=== PATIENT | male | born 1945 | race Caucasian/White ===

== ENCOUNTER 2017-11-30 10:25 | Emergency (ER) | payer OTHER ==
[~2017-11-30] VITALS: Ht 188 cm; Wt 124.7 kg
[~2017-11-30 10:25] MED LIST: ACYC400 PO; ALBU90OI INH; AMLO5 PO; ATEN50 PO; ATOR80 PO; BENZ100A PO; Cipro500 MG PO; GUAI600ER; HYDACE5; HYDACE5 PO; Isosorbide Mono60 MG PO; LEVSOD112; LEVSOD137 PO; LEVSOD25 PO; MAGCIT300 PO; MELO7.5 PO; METO25ER; METO50 PO; METO50ER; NAPR500 PO; Naprosyn500 MG PO; Prednisone20 MG PO; TIMO.5OPSO BOTHEYES; TRAZ100; TRAZ50 PO; Ultram50 MG PO; WARF5; WARF6; WARF7.5 PO; XARELTO20 MG PO
[2017-11-30] MEDS ORDERED: GLIM2 (10:47)
[2017-11-30] MEDS ORDERED: MULTIPLE SUPPLEMENTS (10:47)
[2017-11-30] MEDS ORDERED: UBID10 (10:47)
== END 2017-11-30 11:08 | disposition home or self-care (01) ==
LOC: ER 10:25
DX: M53.3 Sacrococcygeal disorders, not elsewhere classified (principal); G89.29 Other chronic pain; Z79.899 Other long term (current) drug therapy; E03.9 Hypothyroidism, unspecified; I48.91 Unspecified atrial fibrillation; I10 Essential (primary) hypertension; Z87.891 Personal history of nicotine dependence
CPT/HCPCS: 99281

== ENCOUNTER 2017-12-05 05:58 | Emergency (ER) | payer OTHER ==
[~2017-12-05] VITALS: Ht 188 cm; Wt 122.5 kg
[~2017-12-05 05:58] MED LIST changes: +GLIM2; +MULTIPLE SUPPLEMENTS; +UBID10
== END 2017-12-05 10:47 | disposition home or self-care (01) ==
LOC: ER 05:58
DX: M25.551 Pain in right hip (principal); G89.29 Other chronic pain; I10 Essential (primary) hypertension; I48.91 Unspecified atrial fibrillation; E03.9 Hypothyroidism, unspecified; Z87.891 Personal history of nicotine dependence; Z79.899 Other long term (current) drug therapy
CPT/HCPCS: 73502; 99283

== ENCOUNTER 2018-09-12 13:26 | Emergency (ER) | payer OTHER ==
[~2018-09-12] VITALS: Ht 188 cm; Wt 122.5 kg
[2018-09-12] MEDS ORDERED: Cipro500 MG PO (14:36)
== END 2018-09-12 14:39 | disposition home or self-care (01) ==
LOC: ER 13:26
DX: J06.9 Acute upper respiratory infection, unspecified (principal); Z79.899 Other long term (current) drug therapy; E03.9 Hypothyroidism, unspecified; I48.91 Unspecified atrial fibrillation; I10 Essential (primary) hypertension; Z87.891 Personal history of nicotine dependence
CPT/HCPCS: 99282

== ENCOUNTER 2019-05-04 09:04 | Day surgery (SDC) | payer OTHER ==
[~2019-05-04] VITALS: Ht 188 cm; Wt 120.0 kg
[~2019-05-04 09:04] MED LIST changes: +TIMO.25OPS; -TIMO.5OPSO BOTHEYES; -UBID10; +UBID10 PO
[2019-05-04] MEDS ORDERED: Refresh Eye Dr1 EACH BOTHEYES (09:58)
[2019-05-04] MEDS ORDERED: Aspir 8181 MG PO (10:00)
[2019-05-04] MEDS ORDERED: OMEP20ER PO (10:01)
--- NOTE | 2019-05-04 12:40 | NUR ---
PT TO RECOVERY ROOM POST PROCEDURE. PT IS DROWSY, BUT ANSWERS QUESTIONS APPROPRIATELY. PT DENIES PAIN, SOB OR NAUSEA POST PROCEDURE. MONITOR AFIB 50'S, B/P 198/74, AFEBRILE, SPO2 93-95% 2L NC. R GROIN SITE NO SWELLING/HEMATOMA, OLD DRAINAGE TO JYOTI INTACT; 2+ PULSES BLE. L RADIAL ATTEMPT, NO SWELLING/HEMATOMA, TR BAND IN PLACE. DR GAN NOTIFIED OF PT'S ELEVATED B/P, ORDERS RECEIVED.
--- NOTE | 2019-05-04 13:20 | NUR ---
PT'S HR DECREASING TO 30, REMAINS IN AFIB; PT ASYMPTOMATIC. DR GAN NOTIFIED, NO ORDERS RECIEVED, OK TO GIVE NORVASC.
--- NOTE | 2019-05-04 15:48 | NUR ---
PT AMB TO BATHROOM, TOLERATED ACTIVITY WELL, R GROIN AND L RADIAL SITE UNCHANGED WITH ACTIVITY.
--- NOTE | 2019-05-04 16:08 | NUR ---
L RADIAL SITE NO SWELLING/HEMATOMA, TR BAND REMOVED, CLOTH DOT PLACED WITH WRIST IMMOBILIZER. PT INSTRUCTED ON CARE OF SITE AND S/S OF INFECTION/BLEEDING TO LOOK FOR; VERBALIZED GOOD UNDERSTANDING.
--- NOTE | 2019-05-04 16:25 | NUR ---
PT DRESSED SELF WITHOUT ASSISTANCE, R GROIN AND L WRIST SITE REMAIN UNCHANGED; IV REMOVED-CANNULA INTACT.
--- NOTE | 2019-05-04 16:35 | NUR ---
PT RECEIVED DISCHARGE INSTRUCTIONS, MED LIST AND AFTER CARE INSTRUCTIONS; VERBALIZED GOOD UNDERSTANDING. PT TO ENTRANCE VIA W/C, GOING HOME VIA TAXI, CONDTION STABLE.
== END 2019-05-04 16:42 | disposition home or self-care (01) ==
LOC: MHTC 09:04
PROC: B203YZZ Plain Radiography of Multiple Coronary Artery Bypass Grafts using Other Contrast (ICD-10-PCS; principal; 2019-05-04)
PROC: 4A023N7 Measurement of Cardiac Sampling and Pressure, Left Heart, Percutaneous Approach (ICD-10-PCS; principal; 2019-05-04)
PROC: B201YZZ Plain Radiography of Multiple Coronary Arteries using Other Contrast (ICD-10-PCS; principal; 2019-05-04)
DX: I25.118 Atherosclerotic heart disease of native coronary artery with other forms of angina pectoris (principal); I25.718 Atherosclerosis of autologous vein coronary artery bypass graft(s) with other forms of angina pectoris; I25.82 Chronic total occlusion of coronary artery; I48.21 Permanent atrial fibrillation; E78.5 Hyperlipidemia, unspecified; I35.0 Nonrheumatic aortic (valve) stenosis; E66.9 Obesity, unspecified; F32.9 Major depressive disorder, single episode, unspecified; Z79.899 Other long term (current) drug therapy; Z79.01 Long term (current) use of anticoagulants; Z79.82 Long term (current) use of aspirin; Z87.891 Personal history of nicotine dependence; Z68.35 Body mass index [BMI] 35.0-35.9, adult
CPT/HCPCS: 76937; 85347; 93455; 99152; 99153; C1769; C1894; J0360; J0461; J1644; J2250; J3010; J7030; Q9967

== ENCOUNTER 2021-01-25 12:19 | Emergency (ER) | payer OTHER ==
[~2021-01-25] VITALS: Ht 188 cm; Wt 105.0 kg
[~2021-01-25 12:19] MED LIST changes: +Aspir 8181 MG PO; +OMEP20ER PO; +Refresh Eye Dr1 EACH BOTHEYES
[2021-01-25 13:13] LABS: BASOPHILS ABSOLUTE AUTO 0.05 K/mm3 (0.00-0.23); BASOPHILS PERCENT AUTO 1 % (0-2); EOSINOPHILS ABSOLUTE AUTO 0.12 K/mm3 (0.00-0.68); EOSINOPHILS PERCENT AUTO 1 % (0-6); Hematocrit 37.3 % (37.0-53.0); Hemoglobin 12.5 g/dL (13.5-17.5); IMMATURE GRAN ABSOLUTE AUTO 0.03 K/mm3 (0.00-0.10); IMMATURE GRAN PERCENT AUTO 0 % (0-1); LYMPHOCYTES ABSOLUTE AUTO 0.89 K/mm3 (0.84-5.20); LYMPHOCYTES PERCENT AUTO 9 % (21-46); MONOCYTES ABSOLUTE AUTO 0.86 K/mm3 (0.16-1.47); MONOCYTES PERCENT AUTO 9 % (4-13); Mean Corpuscular HGB 34.5 pg (26.0-34.0); Mean Corpuscular HGB Conc 33.5 g/dL (31.5-36.5); Mean Corpuscular Volume 103 fL (80-100); Mean Platelet Volume 11.5 fL (9.1-12.4); NEUTROPHILS ABSOLUTE AUTO 7.74 K/mm3 (1.96-9.15); NEUTROPHILS PERCENT AUTO 80 % (41-73); Platelet Count 129 K/mm3 (150-400); RDW Coefficient Variation 14.3 % (11.7-14.2); Red Blood Cell Count 3.62 M/mm3 (4.30-5.90); White Blood Cell Count 9.69 K/mm3 (4.00-11.30)
[2021-01-25 13:23] LABS: Albumin, Blood 4.4 g/dL (3.4-5.0); Bilirubin, Total 2.7 mg/dL (0.1-1.0); Creatinine, Blood 1.23 mg/dL (0.60-1.20); Globulin, Blood 4.3 g/dL (2.2-4.0); Magnesium, Blood 2.3 mg/dL (1.6-2.4); Phosphorus, Blood 2.8 mg/dL (2.5-4.9); Total Protein, Blood 8.7 g/dL (6.4-8.2)
[2021-01-25] MEDS ORDERED: GLIMEPIRIDE4 MG PO (13:47)
[2021-01-25] MEDS ORDERED: MONT4 PO (13:48)
[2021-01-25] MEDS ORDERED: LOSA25 PO (13:48)
[2021-01-25] MEDS ORDERED: Metformin HCl750 MG PO (13:48)
[2021-01-25 14:05] LABS: SARS-Cov-2 (COVID-19) PCR, MMC NEGATIVE (NEGATIVE)
[2021-01-25 15:27] LABS: International Normalized Ratio 1.42
== END 2021-01-25 19:40 | disposition short-term general hospital (02) ==
LOC: ER 12:19
PROVIDERS: Physician Assistant
DX: I21.4 Non-ST elevation (NSTEMI) myocardial infarction (principal); I11.0 Hypertensive heart disease with heart failure; I50.9 Heart failure, unspecified; I48.91 Unspecified atrial fibrillation; G47.00 Insomnia, unspecified; E03.9 Hypothyroidism, unspecified; Z79.01 Long term (current) use of anticoagulants; Z98.61 Coronary angioplasty status; Z87.891 Personal history of nicotine dependence; Z20.822 Contact with and (suspected) exposure to COVID-19
CPT/HCPCS: 36415; 80053; 83735; 83880; 84100; 84439; 84443; 84484; 85025; 85610; 85730; 93005; 93010; 96374; 99285-25; A9270; J1940; U0004

== ENCOUNTER 2022-02-04 10:45 | Emergency (ER) | payer OTHER ==
[~2022-02-04] VITALS: Ht 188 cm; Wt 99.8 kg
[~2022-02-04 10:45] MED LIST changes: +GLIMEPIRIDE4 MG PO; +LOSA25 PO; +MONT4 PO; +Metformin HCl750 MG PO
[2022-02-04 11:17] LABS: BASOPHILS ABSOLUTE AUTO 0.04 K/mm3 (0.00-0.23); BASOPHILS PERCENT AUTO 1 % (0-2); EOSINOPHILS ABSOLUTE AUTO 1.26 K/mm3 (0.00-0.68); EOSINOPHILS PERCENT AUTO 16 % (0-6); Hematocrit 34.1 % (37.0-53.0); Hemoglobin 11.3 g/dL (13.5-17.5); IMMATURE GRAN ABSOLUTE AUTO 0.02 K/mm3 (0.00-0.10); IMMATURE GRAN PERCENT AUTO 0 % (0-1); LYMPHOCYTES ABSOLUTE AUTO 0.61 K/mm3 (0.84-5.20); LYMPHOCYTES PERCENT AUTO 8 % (21-46); MONOCYTES ABSOLUTE AUTO 0.96 K/mm3 (0.16-1.47); MONOCYTES PERCENT AUTO 12 % (4-13); Mean Corpuscular HGB 32.9 pg (26.0-34.0); Mean Corpuscular HGB Conc 33.1 g/dL (31.5-36.5); Mean Corpuscular Volume 99 fL (80-100); Mean Platelet Volume 10.5 fL (9.1-12.4); NEUTROPHILS ABSOLUTE AUTO 5.05 K/mm3 (1.96-9.15); NEUTROPHILS PERCENT AUTO 64 % (41-73); Platelet Count 150 K/mm3 (150-400); RDW Coefficient Variation 14.7 % (11.7-14.2); RDW Standard Deviation 54.4 fL (35.1-46.3); Red Blood Cell Count 3.43 M/mm3 (4.30-5.90); White Blood Cell Count 7.94 K/mm3 (4.00-11.30)
[2022-02-04 11:27] LABS: Albumin, Blood 3.6 g/dL (3.4-5.0); Albumin/Globulin Ratio 0.9 (0.8-1.8); Bilirubin, Total 1.4 mg/dL (0.1-1.0); Bun/Creatinine Ratio 34.8 (12.0-20.0); Calcium, Blood 9.8 mg/dL (8.5-10.1); Creatinine, Blood 1.61 mg/dL (0.60-1.20); Globulin, Blood 4.1 g/dL (2.2-4.0); Potassium, Blood 4.2 mmol/L (3.5-5.5); Total Protein, Blood 7.7 g/dL (6.4-8.2)
[2022-02-04] MEDS ORDERED: MECL25 PO (13:29)
[2022-02-04] MEDS ORDERED: Hydrocortiso453.6 G3 TOP (13:40)
== END 2022-02-04 13:57 | disposition home or self-care (01) ==
LOC: ER 10:45
PROVIDERS: Student in an Organized Health Care Education/Training Program
DX: R42 Dizziness and giddiness (principal); I48.20 Chronic atrial fibrillation, unspecified; I12.9 Hypertensive chronic kidney disease with stage 1 through stage 4 chronic kidney disease, or unspecified chronic kidney disease; N18.9 Chronic kidney disease, unspecified; R21 Rash and other nonspecific skin eruption; M54.2 Cervicalgia; G89.29 Other chronic pain; L20.9 Atopic dermatitis, unspecified; E03.9 Hypothyroidism, unspecified; Z95.1 Presence of aortocoronary bypass graft; Z87.891 Personal history of nicotine dependence; Z79.899 Other long term (current) drug therapy; Z79.82 Long term (current) use of aspirin; Z79.84 Long term (current) use of oral hypoglycemic drugs
CPT/HCPCS: 36415; 80053; 85025; 93005; 93010; 99284-25; A9270

== ENCOUNTER 2022-04-06 08:52 | Day surgery (SDC) | payer OTHER ==
[~2022-04-06] VITALS: Ht 188 cm; Wt 101.0 kg
[~2022-04-06 08:52] MED LIST changes: +Hydrocortiso453.6 G3 TOP; +Isosorbide Mono30 MG PO; +LATA.005SO; +LOSA50 PO; +MECL25 PO
[2022-04-06] MEDS ORDERED: FURO40 PO (09:12)
[2022-04-06] MEDS ORDERED: CLOP75 PO (09:12)
--- NOTE | 2022-04-06 13:35 | NUR ---
PT HAS REFUSED OFFERED RIDES HOME. STATES HE IS WANTING TO BE ABLE TO DRIVE HOME TONIGHT HIS CAR IS "HIS WHEELCHAIR". DR REYNOLDS NOTIFIED OF THIS, IS CURRENTLY TALKING WITH PT ABOUT RISKS OF DRIVING POST FEMORAL ARTERY ACCESS.
--- NOTE | 2022-04-06 16:17 | NUR ---
PT USED URINAL, VOIDED 575 CC'S YELLOW URINE, GROIN SITE STABLE. DISCHARGE REVIEWED WITH PT, VERBALIZES UNDERSTANDING OF INSTRUCTIONS. GROIN SITE REMAINS STABLE. PT GETTING DRESSED AT THIS TIME. SALINE LOCK REMOVED WITH CATHETER INTACT. PT DISCHARGED PER W/C TO [facility]
== END 2022-04-06 16:30 | disposition home or self-care (01) ==
LOC: MHTC 08:52
DX: I35.0 Nonrheumatic aortic (valve) stenosis (principal); I25.118 Atherosclerotic heart disease of native coronary artery with other forms of angina pectoris; I25.82 Chronic total occlusion of coronary artery; I12.9 Hypertensive chronic kidney disease with stage 1 through stage 4 chronic kidney disease, or unspecified chronic kidney disease; E11.22 Type 2 diabetes mellitus with diabetic chronic kidney disease; N18.30 Chronic kidney disease, stage 3 unspecified; E03.9 Hypothyroidism, unspecified; I48.91 Unspecified atrial fibrillation; E78.5 Hyperlipidemia, unspecified; Z95.1 Presence of aortocoronary bypass graft; Z95.5 Presence of coronary angioplasty implant and graft; Z87.891 Personal history of nicotine dependence; Z79.84 Long term (current) use of oral hypoglycemic drugs; Z79.01 Long term (current) use of anticoagulants
CPT/HCPCS: 76937; 93457; 99152; 99153; A9270; C1769; C1894; J1644; J2250; J3010; J7030; J7050; Q9967

== ENCOUNTER → 2022-07-05 | Outpatient (CLI) | payer OTHER ==
[~2022-07-05] MED LIST changes: +CLOP75 PO; +FURO40 PO
[2022-07-05 18:39] LABS: BASOPHILS ABSOLUTE AUTO 0.05 K/mm3 (0.00-0.23); BASOPHILS PERCENT AUTO 1 % (0-2); EOSINOPHILS ABSOLUTE AUTO 0.68 K/mm3 (0.00-0.68); EOSINOPHILS PERCENT AUTO 9 % (0-6); Hematocrit 37.5 % (37.0-53.0); Hemoglobin 12.7 g/dL (13.5-17.5); IMMATURE GRAN ABSOLUTE AUTO 0.01 K/mm3 (0.00-0.10); IMMATURE GRAN PERCENT AUTO 0 % (0-1); LYMPHOCYTES ABSOLUTE AUTO 0.84 K/mm3 (0.84-5.20); LYMPHOCYTES PERCENT AUTO 12 % (21-46); MONOCYTES ABSOLUTE AUTO 0.76 K/mm3 (0.16-1.47); MONOCYTES PERCENT AUTO 11 % (4-13); Mean Corpuscular HGB 34.1 pg (26.0-34.0); Mean Corpuscular HGB Conc 33.9 g/dL (31.5-36.5); Mean Corpuscular Volume 101 fL (80-100); Mean Platelet Volume 10.3 fL (9.1-12.4); NEUTROPHILS ABSOLUTE AUTO 4.93 K/mm3 (1.96-9.15); NEUTROPHILS PERCENT AUTO 68 % (41-73); Platelet Count 187 K/mm3 (150-400); RDW Coefficient Variation 13.1 % (11.7-14.2); RDW Standard Deviation 48.7 fL (35.1-46.3); Red Blood Cell Count 3.72 M/mm3 (4.30-5.90); White Blood Cell Count 7.27 K/mm3 (4.00-11.30)
[2022-07-05 20:43] LABS: Albumin, Blood 4.3 g/dL (3.4-5.0); Albumin/Globulin Ratio 1.1 (0.8-1.8); Bilirubin, Total 0.9 mg/dL (0.1-1.0); Bun/Creatinine Ratio 35.4 (12.0-20.0); Calcium, Blood 10.5 mg/dL (8.5-10.1); Creatinine, Blood 2.43 mg/dL (0.60-1.20); Globulin, Blood 3.8 g/dL (2.2-4.0); Potassium, Blood 4.6 mmol/L (3.5-5.5); Total Protein, Blood 8.1 g/dL (6.4-8.2)
== END | disposition home or self-care (01) ==
LOC: LAB SHORT 18:12 → LAB 18:12
PROVIDERS: Nurse Practitioner Family
DX: E11.22 Type 2 diabetes mellitus with diabetic chronic kidney disease (principal); N18.30 Chronic kidney disease, stage 3 unspecified
CPT/HCPCS: 80053; 83036; 85025

== ENCOUNTER → 2022-10-14 | Outpatient (CLI) | payer OTHER ==
[2022-10-14 15:37] LABS: BASOPHILS ABSOLUTE AUTO 0.05 K/mm3 (0.00-0.23); BASOPHILS PERCENT AUTO 1 % (0-2); EOSINOPHILS ABSOLUTE AUTO 0.61 K/mm3 (0.00-0.68); EOSINOPHILS PERCENT AUTO 10 % (0-6); Hemoglobin 11.2 g/dL (13.5-17.5); IMMATURE GRAN ABSOLUTE AUTO 0.01 K/mm3 (0.00-0.10); IMMATURE GRAN PERCENT AUTO 0 % (0-1); LYMPHOCYTES ABSOLUTE AUTO 0.66 K/mm3 (0.84-5.20); LYMPHOCYTES PERCENT AUTO 10 % (21-46); MONOCYTES ABSOLUTE AUTO 0.69 K/mm3 (0.16-1.47); MONOCYTES PERCENT AUTO 11 % (4-13); Mean Corpuscular HGB 34.5 pg (26.0-34.0); Mean Corpuscular HGB Conc 33.9 g/dL (31.5-36.5); Mean Corpuscular Volume 102 fL (80-100); Mean Platelet Volume 10.4 fL (9.1-12.4); NEUTROPHILS ABSOLUTE AUTO 4.31 K/mm3 (1.96-9.15); NEUTROPHILS PERCENT AUTO 68 % (41-73); Platelet Count 132 K/mm3 (150-400); RDW Coefficient Variation 13.6 % (11.7-14.2); RDW Standard Deviation 51.5 fL (35.1-46.3); Red Blood Cell Count 3.25 M/mm3 (4.30-5.90); White Blood Cell Count 6.33 K/mm3 (4.00-11.30)
[2022-10-14 20:13] LABS: Bun/Creatinine Ratio 38.3 (12.0-20.0); Calcium, Blood 9.8 mg/dL (8.5-10.1); Creatinine, Blood 1.96 mg/dL (0.60-1.20); Potassium, Blood 4.4 mmol/L (3.5-5.5)
== END | disposition home or self-care (01) ==
LOC: LAB 12:00 → LAB SHORT 12:00
DX: I35.0 Nonrheumatic aortic (valve) stenosis (principal); E11.22 Type 2 diabetes mellitus with diabetic chronic kidney disease; N18.30 Chronic kidney disease, stage 3 unspecified; R89.1 Abnormal level of hormones in specimens from other organs, systems and tissues
CPT/HCPCS: 80048; 85025

== ENCOUNTER → 2022-11-25 | Outpatient (CLI) | payer OTHER ==
[2022-11-25 16:13] LABS: BASOPHILS ABSOLUTE AUTO 0.03 K/mm3 (0.00-0.23); BASOPHILS PERCENT AUTO 1 % (0-2); EOSINOPHILS ABSOLUTE AUTO 0.62 K/mm3 (0.00-0.68); EOSINOPHILS PERCENT AUTO 11 % (0-6); Hematocrit 32.7 % (37.0-53.0); Hemoglobin 10.8 g/dL (13.5-17.5); IMMATURE GRAN ABSOLUTE AUTO 0.01 K/mm3 (0.00-0.10); IMMATURE GRAN PERCENT AUTO 0 % (0-1); LYMPHOCYTES ABSOLUTE AUTO 0.78 K/mm3 (0.84-5.20); LYMPHOCYTES PERCENT AUTO 14 % (21-46); MONOCYTES ABSOLUTE AUTO 0.55 K/mm3 (0.16-1.47); MONOCYTES PERCENT AUTO 10 % (4-13); Mean Corpuscular HGB 34.3 pg (26.0-34.0); Mean Corpuscular Volume 104 fL (80-100); Mean Platelet Volume 11.2 fL (9.1-12.4); NEUTROPHILS ABSOLUTE AUTO 3.53 K/mm3 (1.96-9.15); NEUTROPHILS PERCENT AUTO 64 % (41-73); Platelet Count 113 K/mm3 (150-400); RDW Coefficient Variation 13.7 % (11.7-14.2); RDW Standard Deviation 52.3 fL (35.1-46.3); Red Blood Cell Count 3.15 M/mm3 (4.30-5.90); White Blood Cell Count 5.52 K/mm3 (4.00-11.30)
[2022-11-25 16:36] LABS: Bun/Creatinine Ratio 43.1 (12.0-20.0); Calcium, Blood 9.8 mg/dL (8.5-10.1); Creatinine, Blood 2.09 mg/dL (0.60-1.20); Potassium, Blood 5.2 mmol/L (3.5-5.5)
== END | disposition home or self-care (01) ==
LOC: LAB SHORT 14:34 → LAB 14:34
PROVIDERS: Nurse Practitioner Family
DX: E11.22 Type 2 diabetes mellitus with diabetic chronic kidney disease (principal); N18.30 Chronic kidney disease, stage 3 unspecified; D63.1 Anemia in chronic kidney disease; R89.1 Abnormal level of hormones in specimens from other organs, systems and tissues
CPT/HCPCS: 80048; 83036; 85025

== ENCOUNTER → 2023-06-02 | Outpatient (CLI) | payer OTHER ==
[2023-06-02 19:01] LABS: BASOPHILS ABSOLUTE AUTO 0.05 K/mm3 (0.00-0.23); BASOPHILS PERCENT AUTO 1 % (0-2); EOSINOPHILS ABSOLUTE AUTO 0.79 K/mm3 (0.00-0.68); EOSINOPHILS PERCENT AUTO 14 % (0-6); Hematocrit 36.4 % (37.0-53.0); Hemoglobin 11.9 g/dL (13.5-17.5); IMMATURE GRAN ABSOLUTE AUTO 0.01 K/mm3 (0.00-0.10); IMMATURE GRAN PERCENT AUTO 0 % (0-1); LYMPHOCYTES ABSOLUTE AUTO 0.68 K/mm3 (0.84-5.20); LYMPHOCYTES PERCENT AUTO 12 % (21-46); MONOCYTES ABSOLUTE AUTO 0.62 K/mm3 (0.16-1.47); MONOCYTES PERCENT AUTO 11 % (4-13); Mean Corpuscular HGB 34.4 pg (26.0-34.0); Mean Corpuscular HGB Conc 32.7 g/dL (31.5-36.5); Mean Corpuscular Volume 105 fL (80-100); Mean Platelet Volume 11.5 fL (9.1-12.4); NEUTROPHILS ABSOLUTE AUTO 3.34 K/mm3 (1.96-9.15); NEUTROPHILS PERCENT AUTO 61 % (41-73); Platelet Count 139 K/mm3 (150-400); RDW Coefficient Variation 14.3 % (11.7-14.2); RDW Standard Deviation 55.8 fL (35.1-46.3); Red Blood Cell Count 3.46 M/mm3 (4.30-5.90); White Blood Cell Count 5.49 K/mm3 (4.00-11.30)
[2023-06-02 20:30] LABS: Thyroid Stimulating Hormone 7.32 uIU/mL (0.360-4.800)
== END ==
LOC: LAB 16:31 → LAB SHORT 16:31
PROVIDERS: Nurse Practitioner Family
DX: D64.9 Anemia, unspecified (principal); E03.9 Hypothyroidism, unspecified; R63.4 Abnormal weight loss
CPT/HCPCS: 82150; 83690; 84443; 85025

== ENCOUNTER → 2024-05-25 | Outpatient (CLI) | payer OTHER ==
[2024-05-25 16:11] LABS: Adenovirus F 40/41 Not Detected (NOT DETECT); Astrovirus Not Detected (NOT DETECT); Campylobacter Sp Not Detected (NOT DETECT); Cryptosporidium Not Detected (NOT DETECT); Cyclospora Cayetanensis Not Detected (NOT DETECT); E. Coli O157 Not Detected (NOT DETECT); Entamoeba Histolytica Not Detected (NOT DETECT); Enteroaggregative E. coli-EAEC Not Detected (NOT DETECT); Enteropathogenic E. coli-EPEC Not Detected (NOT DETECT); Enterotoxigenic E. coli-ETEC Not Detected (NOT DETECT); Giardia Lamblia Not Detected (NOT DETECT); Norovirus GI/GII Detected (NOT DETECT); Plesiomonas Shigelloides Not Detected (NOT DETECT); Rotavirus A Not Detected (NOT DETECT); Salmonella Sp Not Detected (NOT DETECT); Sapovirus Not Detected (NOT DETECT); Shiga Toxin-prod E. coli-STEC Not Detected (NOT DETECT); Shigella/Enteroin E. coli-EIEC Not Detected (NOT DETECT); Vibrio Cholerae Not Detected (NOT DETECT); Vibrio Sp Not Detected (NOT DETECT); Yersinia Enterocolitica Not Detected (NOT DETECT)
== END ==
LOC: LAB SHORT 13:43 → LAB 13:43
PROVIDERS: Nurse Practitioner Family
DX: R19.7 Diarrhea, unspecified (principal)
CPT/HCPCS: 87507

== ENCOUNTER 2024-07-23 11:19 | Inpatient (IN) | payer OTHER ==
[~2024-07-23] VITALS: Ht 188 cm; Wt 86.0 kg
[~2024-07-23 11:19] MED LIST changes: +LEVSOD112 PO; -LEVSOD137 PO; -LOSA50 PO; +MONT10T PO; -MONT4 PO
[2024-07-23 11:57] LABS: BASOPHILS ABSOLUTE AUTO 0.01 K/mm3 (0.00-0.23); BASOPHILS PERCENT AUTO 0 % (0-2); EOSINOPHILS ABSOLUTE AUTO 0.06 K/mm3 (0.00-0.68); EOSINOPHILS PERCENT AUTO 1 % (0-6); Hematocrit 39.6 % (37.0-53.0); Hemoglobin 13.9 g/dL (13.5-17.5); IMMATURE GRAN ABSOLUTE AUTO 0.06 K/mm3 (0.00-0.10); IMMATURE GRAN PERCENT AUTO 1 % (0-1); LYMPHOCYTES ABSOLUTE AUTO 0.59 K/mm3 (0.84-5.20); LYMPHOCYTES PERCENT AUTO 8 % (21-46); MONOCYTES PERCENT AUTO 13 % (4-13); Mean Corpuscular HGB 35.5 pg (26.0-34.0); Mean Corpuscular HGB Conc 35.1 g/dL (31.5-36.5); Mean Corpuscular Volume 101 fL (80-100); Mean Platelet Volume 10.3 fL (9.1-12.4); NEUTROPHILS ABSOLUTE AUTO 5.44 K/mm3 (1.96-9.15); NEUTROPHILS PERCENT AUTO 77 % (41-73); Platelet Count 185 K/mm3 (150-400); RDW Coefficient Variation 13.4 % (11.7-14.2); RDW Standard Deviation 49.2 fL (35.1-46.3); Red Blood Cell Count 3.91 M/mm3 (4.30-5.90); White Blood Cell Count 7.06 K/mm3 (4.00-11.30)
[2024-07-23 12:42] LABS: Albumin, Blood 3.6 g/dL (3.4-5.0); Albumin/Globulin Ratio 0.9 (0.8-1.8); Bilirubin, Total 2.3 mg/dL (0.1-1.0); Calcium, Blood 8.8 mg/dL (8.5-10.1); Creatinine, Blood 1.83 mg/dL (0.60-1.20); Potassium, Blood 4.1 mmol/L (3.5-5.5); Total Protein, Blood 7.6 g/dL (6.4-8.2)
[2024-07-23 14:31] LABS: International Normalized Ratio 1.16; Prothrombin Time Results 12.3 Sec (9.7-11.5)
[2024-07-23] MEDS ORDERED: Heparin Sodium,Porcine/0.5 NS 500 ML IV SCH (14:40)
[2024-07-23] MEDS ORDERED: FLU VACC TS2024-25(6MOS UP)/PF 45 MCG/0.5 ML SYRINGE IM SCH (14:50)
[2024-07-23] MEDS ORDERED: HydrALAZINE HCl 20 MG / ML 1ML Vial IV PRN ×2 (15:05→16:55)
[2024-07-23] MEDS ORDERED: Docusate Sodium 100 MG Cap PO PRN (15:10)
[2024-07-23] MEDS ORDERED: Ondansetron 4 MG SoluTab MM PRN (15:10)
[2024-07-23] MEDS ORDERED: Acetaminophen 325 MG TABLET PO PRN (15:10)
[2024-07-23 15:14] LABS: Adenovirus Not Detected (NOT DETECT); Coronavirus 229E Not Detected (NOT DETECT); Coronavirus HKU1 Not Detected (NOT DETECT); Coronavirus NL63 Not Detected (NOT DETECT); Coronavirus OC43 Not Detected (NOT DETECT); Human Metapneumovirus Not Detected (NOT DETECT); Human Rhinovirus/Enterovirus Not Detected (NOT DETECT); Influenza A/2009-H1 Detected (NOT DETECT); Influenza A/H1 Not Detected (NOT DETECT); Influenza A/H3 Not Detected (NOT DETECT); SARS-Cov-2 (COVID-19), BioFire Not Detected (NOT DETECT)
[2024-07-23 15:15] LABS: Bordetella pertussis Not Detected (NOT DETECT); Chlamydophila pneumoniae Not Detected (NOT DETECT); Influenza B Not Detected (NOT DETECT); Mycoplasma pneumoniae Not Detected (NOT DETECT); Parainfluenza Virus 1 Not Detected (NOT DETECT); Parainfluenza Virus 2 Not Detected (NOT DETECT); Parainfluenza Virus 3 Not Detected (NOT DETECT); Parainfluenza Virus 4 Not Detected (NOT DETECT); Respiratory Syncytial Virus Not Detected (NOT DETECT)
[2024-07-23 17:14] VITALS: BP 186/54
--- NOTE | 2024-07-23 19:15 | NUR ---
late entry: 1700: pt arrived to the ED and walked from [facility] to the bed. He is A &o x3-4, his history of events prior to arrival is a little blurry. he reports a fall from a foam mattress 3-4 days ago. He states that he took his medications 3-4 days ago, but he can't recall exactly which ones he takes. The meds on the medication claim history from past 180 days sound familiar to him. He is a vegetarian, takes "lots of supplements". He is a Type 2 diabetic. IV access to bilat forearms. Room air. Lung sounds coarse with inspiratory wheezes. Elevated BP with apresoline available PRN every 6 hours. Heparin drip confirmed with Rush MARTINEZ, 15 u/kg/hr, 24.6 ml/hr. Extensive cardiac history with CABG, HTN, aortic stenosis. At this point he denies chest pain. Pt lives alone in an apartment about [place] [address] in [place]. He describes his area of town as "rough" and states he doesn't leave the house often. He states that he drives his own car.
[2024-07-23 19:24] VITALS: BP 153/41
[2024-07-23 19:31] VITALS: BP 162/55
[2024-07-24] MEDS ORDERED: Dose Adjust by Pharmacy XX STA ×3 (00:11→21:02)
--- NOTE | 2024-07-24 01:20 | NUR ---
CONTINUE SAME RATE FOR HEPARIN DRIP PER PHARMACY ORDER.
--- NOTE | 2024-07-24 02:42 | NUR ---
DEICER REPAIRER PNEUMATIC SUMMARY: PT ADMITTED FOR NSTEMI AND INFLUENZA A. DNR. PT A&O X3-4, SOME FORGETFULNESS OF LIMITATIONS / FOLLOWING DIRECTION. HEPARIN DRIP INFUSING AT 15U/KH/HR, 24.6 ML/HR, CONTINUE SAME RATE PER NEW PHARMACY ORDER. TELE IN PLACE, A FLUTTER IN 60'S. DENIES CP /CHEST PRESSURE. PT INDEPENDENT WITH BED MOBILITY, FWW WITH SBA PIVOT TRANSFER TO BSC. INCONTINENT OF BLADDER WITH MALE PUREWICK IN PLACE. CONTINENT BM IN BSC THIS SHIFT. CARES CONTINUE ORDERED. BED IN LOWEST POSITION. CALL LIGHT IN REACH.
[2024-07-24 04:30] VITALS: BP 164/46
[2024-07-24 07:05] LABS: BASOPHILS ABSOLUTE AUTO 0.02 K/mm3 (0.00-0.23); BASOPHILS PERCENT AUTO 0 % (0-2); EOSINOPHILS ABSOLUTE AUTO 0.12 K/mm3 (0.00-0.68); EOSINOPHILS PERCENT AUTO 2 % (0-6); Hematocrit 37.5 % (37.0-53.0); Hemoglobin 13.2 g/dL (13.5-17.5); IMMATURE GRAN PERCENT AUTO 1 % (0-1); LYMPHOCYTES ABSOLUTE AUTO 0.59 K/mm3 (0.84-5.20); LYMPHOCYTES PERCENT AUTO 8 % (21-46); MONOCYTES ABSOLUTE AUTO 0.91 K/mm3 (0.16-1.47); MONOCYTES PERCENT AUTO 13 % (4-13); Mean Corpuscular HGB 35.6 pg (26.0-34.0); Mean Corpuscular HGB Conc 35.2 g/dL (31.5-36.5); Mean Corpuscular Volume 101 fL (80-100); Mean Platelet Volume 10.3 fL (9.1-12.4); NEUTROPHILS ABSOLUTE AUTO 5.45 K/mm3 (1.96-9.15); NEUTROPHILS PERCENT AUTO 76 % (41-73); Platelet Count 168 K/mm3 (150-400); RDW Coefficient Variation 13.5 % (11.7-14.2); RDW Standard Deviation 49.2 fL (35.1-46.3); Red Blood Cell Count 3.71 M/mm3 (4.30-5.90); White Blood Cell Count 7.19 K/mm3 (4.00-11.30)
[2024-07-24 07:21] LABS: Albumin, Blood 3.4 g/dL (3.4-5.0); Albumin/Globulin Ratio 0.9 (0.8-1.8); Bilirubin, Total 2.1 mg/dL (0.1-1.0); Bun/Creatinine Ratio 39.3 (12.0-20.0); Calcium, Blood 8.4 mg/dL (8.5-10.1); Creatinine, Blood 1.83 mg/dL (0.60-1.20); Globulin, Blood 3.6 g/dL (2.2-4.0); Potassium, Blood 4.2 mmol/L (3.5-5.5)
[2024-07-24 07:40] VITALS: BP 175/68
[2024-07-24] MEDS ORDERED: Oseltamivir Phosphate 75 MG Cap PO ONE (08:00)
[2024-07-24 12:26] VITALS: BP 171/60
[2024-07-24 13:17] VITALS: BP 150/41
--- NOTE | 2024-07-24 15:47 | NUR ---
Upon receiving a request from CEO Barahona for spiritual care, I visited the patient. He is confused at times and answers questions I did not ask but he is pleasant. He talks about his spirituality as being important to him. 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 He is not a provider relations representative of a local holiness but more as a state consciousness. He stated that he used to have friends but now he is all alone and the people that he does meet these days just steal from him. He says that he wants to live to help others but they seem to take advantage of him. He shares about his feelings that nothing is important to him now and after all this is nothing. We explore sources of hope and meaniing and I provided prayer for him. His elevation in mood evidence that the visit encouraged him and he stated that he felt more centered. I will continue to remain available to the patient.
[2024-07-24 16:31] VITALS: BP 183/64
--- NOTE | 2024-07-24 17:44 | NUR ---
SHIFT SUMMARY PT IS A/OX3-4, IMPULSIVE AT TIMES, BED/CHAIR ALARM REMAINS ON. TROPONINS REMAIN CRITICALLY ELEVATED. PT DENIES CHEST PAIN/PRESSURE THROUGHOUT THIS SHIFT. HEPARIN DRIP CONTINUES INFUSING AT 13 U/KG/HR, 21.3 ML/HR. ON TELE RUNNING AFIB IN THE 'S. BP REMAINS ELEVATED, MEDICATED WITH PRN HYDRALAZINE X1 THIS AFTERNOON PER AUG. PT IS A 1 PERSON ASSIST TO THE CHAIR/BSC.
[2024-07-24 19:54] VITALS: BP 155/47
[2024-07-24] MEDS ORDERED: Oseltamvir Phosphate 30 MG Cap PO SCH (21:00)
[2024-07-25 00:33] VITALS: BP 169/58
[2024-07-25 02:00] VITALS: BP 167/57
--- NOTE | 2024-07-25 04:53 | NUR ---
SHIFT SUMMARY: PT AOX3-4 ANSWERING QUESTIONS APPROPRIATELY BUT IS POOR HISTORIAN WITH SLIGHT CONFUSION. PLEASANT AND COOPERATIVE IN CARE. PT ON MALE PUREWICK SYSTEM AND TOLERATING HEPARIN DRIP WELL. PT HAS NO COMPLAINTS OF PAIN BUT IS RESTLESS TRANSFERING FROM SITTING UP ON EDGE OF BED TO CHAIR TO ATTEMPTING TO SLEEP IN THE BED REGULARLY. NO ACUTE EVENTS OVERNIGHT. PT RESTING IN BED, BED IN LOWEST POSITION, CALL LIGHT IN REACH. CONTINUING CARE.
[2024-07-25 04:55] LABS: BASOPHILS ABSOLUTE AUTO 0.02 K/mm3 (0.00-0.23); BASOPHILS PERCENT AUTO 0 % (0-2); EOSINOPHILS ABSOLUTE AUTO 0.18 K/mm3 (0.00-0.68); EOSINOPHILS PERCENT AUTO 2 % (0-6); Hematocrit 37.9 % (37.0-53.0); IMMATURE GRAN ABSOLUTE AUTO 0.11 K/mm3 (0.00-0.10); IMMATURE GRAN PERCENT AUTO 1 % (0-1); LYMPHOCYTES ABSOLUTE AUTO 0.66 K/mm3 (0.84-5.20); LYMPHOCYTES PERCENT AUTO 8 % (21-46); MONOCYTES ABSOLUTE AUTO 0.79 K/mm3 (0.16-1.47); MONOCYTES PERCENT AUTO 10 % (4-13); Mean Corpuscular HGB 34.9 pg (26.0-34.0); Mean Corpuscular HGB Conc 34.3 g/dL (31.5-36.5); Mean Corpuscular Volume 102 fL (80-100); Mean Platelet Volume 10.2 fL (9.1-12.4); NEUTROPHILS ABSOLUTE AUTO 6.13 K/mm3 (1.96-9.15); NEUTROPHILS PERCENT AUTO 78 % (41-73); Platelet Count 173 K/mm3 (150-400); RDW Coefficient Variation 13.6 % (11.7-14.2); RDW Standard Deviation 50.2 fL (35.1-46.3); Red Blood Cell Count 3.72 M/mm3 (4.30-5.90); White Blood Cell Count 7.89 K/mm3 (4.00-11.30)
[2024-07-25 05:21] LABS: Albumin, Blood 3.6 g/dL (3.4-5.0); Albumin/Globulin Ratio 0.9 (0.8-1.8); Bilirubin, Total 1.5 mg/dL (0.1-1.0); Calcium, Blood 8.8 mg/dL (8.5-10.1); Creatinine, Blood 1.68 mg/dL (0.60-1.20); Globulin, Blood 3.8 g/dL (2.2-4.0); Potassium, Blood 4.4 mmol/L (3.5-5.5); Total Protein, Blood 7.4 g/dL (6.4-8.2)
[2024-07-25] MEDS ORDERED: Dose Adjust by Pharmacy XX STA ×2 (05:53→13:05)
[2024-07-25 07:27] VITALS: BP 161/64
--- NOTE | 2024-07-25 12:46 | NUR ---
Patient is sitting on the EOB and alert. He tells me about his connection to God is his everything. 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 He continues to find hope in God and says that he has no plans or means to kill himself currently. He remembers a time when God felt very close to him and that he will get back to that soon. I provided therapeutic listening and prayer, and highlighted his ability to overcome and always find a way to overcome in life. He states that he is aware of the mental health services in the area and is uses them from time to time. Patient showed signs of an elevated mood and an increase in hope.
[2024-07-25 14:38] VITALS: BP 134/83
--- NOTE | 2024-07-25 18:05 | NUR ---
SHIFT SUMMARY PT AOX3/4, COOPERATIVE, ABLE TO MAKE NEEDS KNOWN. PT HAS NOT HAD ANY COMPLAINTS THIS SHIFT. REPLACED MALE PURE WICK. AWAITING SNF PLACEMENT POSSIBLY. TITRATING OXYGEN TO ROOM AIR IS BASELINE, PT HAS BEEN TAKING OFF OXYGEN NEEDED. BED IN LOWEST POSITION, CALL LIGHT WITH IN REACH.
[2024-07-25 22:22] VITALS: BP 165/77
--- NOTE | 2024-07-26 04:31 | NUR ---
SHIFT SUMMARY: PT AOX4 WITH MILD CONFUSION. IS ABLE TO TRANSFER FROM BED TO CHAIR WITH SBA. CAN BE IMPULSIVE AT TIMES BUT EASILY REDIRECTABLE. BED/CHAIR ALARM IN PLACE. PT IN MALE PUREWICK FOR INCONTINENCE, IS ABLE TO CALL APPROPRIATELY. PT HOOKED UP TO 1L OF O2 AND HAS JUST BEEN WEARING IT WITHOUT THE NC IN PLACE "IN CASE HE NEEDS IT" HAVE NOT NOTICED IT IN HIS NOSTRILS SINCE SHIFT CHANGE. PT ABLE TO SLEEP A LITTLE BIT AND NO ACUTE EVENTS OVERNIGHT. PT SLEEPING IN BED, BED IN LOWEST POSITION, CALL LIGHT IN REACH. CONTINUING CARE.
[2024-07-26 05:42] VITALS: BP 163/48
[2024-07-26 06:26] LABS: Albumin, Blood 3.1 g/dL (3.4-5.0); Bilirubin, Total 1.1 mg/dL (0.1-1.0); Bun/Creatinine Ratio 39.5 (12.0-20.0); Calcium, Blood 8.2 mg/dL (8.5-10.1); Creatinine, Blood 1.72 mg/dL (0.60-1.20); Globulin, Blood 3.2 g/dL (2.2-4.0); Potassium, Blood 4.7 mmol/L (3.5-5.5); Total Protein, Blood 6.3 g/dL (6.4-8.2)
[2024-07-26 07:29] VITALS: BP 169/67
--- NOTE | 2024-07-26 08:14 | NUR ---
pt sitting up on the side of the bed wrapped in blankets, when asked how he is he gives a nonanswer, denies complaints of pain, reports reg bm's, a/ox3, not contributing to conversation, cooperative with care, follows commands well, lungs are clear a bit dim in bases, resp even and unlabored, no cough noted, on r/a, hrirr, tele in place running afib per monitor, see strip, tele hospital monitor called this am states he hit the 30's briefly, then was running 44-45 for a short time, now in 50's, trace edema noted to b/l le, ppp+1, cap refill<3 sec, vs stable, afebrile, piv to r and l fa's, sites are clear and patent, btx4, btx4, abd flat soft nontender, voids via male purwick at this time, skin c/w/d, fernandez driver, call light in reach.
[2024-07-26 12:04] VITALS: BP 187/66
[2024-07-26] MEDS ORDERED: OSELTAMIVIR PHO3011 PO (14:46)
[2024-07-26] MEDS ORDERED: TIMO.5OPSO BOTHEYES (15:03)
[2024-07-26] MEDS ORDERED: NITROGLYCERIN0.4 M3 SL (15:03)
[2024-07-26] MEDS ORDERED: TAMSULOSIN HCL0.4 M1 PO (15:04)
[2024-07-26] MEDS ORDERED: AMLO10 PO (15:12)
[2024-07-26] MEDS ORDERED: Isosorbide Mono30 MG PO (15:21)
[2024-07-26 15:40] VITALS: BP 175/59
--- NOTE | 2024-07-26 17:12 | NUR ---
pt has been discharged to home with home health, transport taking him home, ivx2 removed intact, faxed new script to [facility], transport will take him to [facility] to pick it up on the way home, left with all belongings and ptbl o2 on 2 liters via wheelchair.
== END 2024-07-26 16:50 | disposition home health service (06) | DRG 193 ==
LOC: ER 11:19 → MEDS 11:20
PROVIDERS: Emergency Medicine; Student in an Organized Health Care Education/Training Program; ADMIT Family Medicine
DX: J10.00 Influenza due to other identified influenza virus with unspecified type of pneumonia (principal); I21.A1 Myocardial infarction type 2; E44.0 Moderate protein-calorie malnutrition; Z68.1 Body mass index [BMI] 19.9 or less, adult; E03.9 Hypothyroidism, unspecified; I08.2 Rheumatic disorders of both aortic and tricuspid valves; Z66 Do not resuscitate; I16.0 Hypertensive urgency; R74.01 Elevation of levels of liver transaminase levels; I27.20 Pulmonary hypertension, unspecified; I48.91 Unspecified atrial fibrillation; Z79.01 Long term (current) use of anticoagulants; I35.0 Nonrheumatic aortic (valve) stenosis; Z98.890 Other specified postprocedural states; Z87.891 Personal history of nicotine dependence; Z79.82 Long term (current) use of aspirin; Z79.02 Long term (current) use of antithrombotics/antiplatelets; Z79.890 Hormone replacement therapy; Z79.899 Other long term (current) drug therapy; Z79.84 Long term (current) use of oral hypoglycemic drugs
CPT/HCPCS: 0202U; 36415; 71046; 80053; 82140; 83880; 84145; 84484; 85025; 85610; 85730; 94761; 96374; 97110; 97161; 97165; 97530; 97535; 99285-25; A9270; G0378; J0360; J1644